=== PATIENT | female | born 1985 ===

== ENCOUNTER 2023-06-05 09:33 | Outpatient (CLI) | payer OTHER | END 2023-06-05 09:35 | disposition home or self-care (01) | LOC: SONOGRAMA 09:33 | PROVIDERS: ATTEND Pathology Anatomic Pathology & Clinical Pathology | DX: E03.9 Hypothyroidism, unspecified (principal); E04.2 Nontoxic multinodular goiter; D34 Benign neoplasm of thyroid gland ==